=== PATIENT | female | born 1985 | race American Indian/Alaskan Native ===

== ENCOUNTER 2018-12-27 14:46 | Inpatient (IN) | payer OTHER ==
[2018-12-27] MEDS ORDERED: MINERAL OIL PO PRN ×2 (15:53→16:58)
[2018-12-27] MEDS ORDERED: BRETHINE IVP PRN ×2 (15:53→16:58)
[2018-12-27] MEDS ORDERED: XYLOCAINE 2% INFILTRATI ONE ×2 (15:53→16:58)
[2018-12-27] MEDS ORDERED: SUBLIMAZE IV PRN (15:53)
[2018-12-27] MEDS ORDERED: STADOL IV PRN (15:53)
[2018-12-27] MEDS ORDERED: BRETHINE SUB-Q PRN ×2 (15:53→16:58)
[2018-12-27] MEDS ORDERED: LACTATED RINGERS 1,000 ML IV SCH ×2 (16:00→17:00)
[2018-12-27] MEDS ORDERED: PITOCin/NS 20 UNIT/1000ML DRIP 20 UNITS/1,000 ML BAG IV SCH ×2 (16:00→17:00)
[2018-12-27] MEDS ORDERED: PITOCin/NS 30 UNIT/500ML 30 UNITS/500 ML BAG IV SCH ×2 (16:00→17:00)
[2018-12-27 16:48] LABS: Hematocrit 37.5 % (30.3-42.9); Hemoglobin 12.3 gm/dl (10.1-14.3); Mean Corpuscular HGB Conc 33 % (30-34); Mean Corpuscular Volume 86 fl (79-97); Platelet Count 326 K/mm3 (140-440); Red Blood Count 4.35 M/mm3 (3.65-5.03); Red Cell Distribution Width 14.9 % (13.2-15.2)
--- NOTE | 2018-12-27 16:57 | History and Physical Report ---
History of Present Illness Date of examination: 12/27/18 Date of admission: 12/27/18 14:46 Chief complaint: Labor History of present illness: Pt is a 33yo BF EDC 01/08/19; EGA 38 2/7 weeks presents to L&D complaining of RUC's q 3-5 mins and dilated 6.5/90/-2 She received care at [facility] since 12 weeks and co-managed by [facility] for AMA, IVF and shortened cervix. records are available and GBS is Negative. Past History Past Medical History: no pertinent history Past Surgical History: no surgical history Family/Genetic History: diabetes, heart disease, hypertension Social history: no significant social history, - Obstetrical History Expected Date of Delivery: 01/08/19 Actual Gestation: 38 Week(s) 2 Day(s) : 2 Medications and Allergies Allergies Allergy/AdvReac Type Severity Reaction Status Date / Time No Known Allergies Allergy Unverified 04/02/15 11:37 Active Meds: Active Medications Butorphanol Tartrate (Stadol) 2 mg IV Q2H PRN PRN Reason: Pain , Severe (7-10) Ephedrine Sulfate (Ephedrine Sulfate) 10 mg IV Q2M PRN PRN Reason: Hypotension Fentanyl (Sublimaze) 100 mcg IV Q2H PRN PRN Reason: Labor Pain Lactated Ringer's (Lactated Ringers) 1,000 mls @ 125 mls/hr IV DIRECT NICOLE Last Admin: 12/27/18 16:05 Dose: 125 mls/hr Documented by: Oxytocin/Sodium Chloride (Pitocin/Ns 20 Unit/1000ml Drip) 20 units in 1,000 mls @ 125 mls/hr IV DIRECT NICOLE Oxytocin/Sodium Chloride (Pitocin/Ns 30 Unit/500ml) 30 units in 500 mls @ 1 mls/hr IV TITR NICOLE; Protocol Mineral Oil (Mineral Oil) 30 ml PO QHS PRN PRN Reason: Constipation Terbutaline Sulfate (Brethine) 0.25 mg SUB-Q ONCE PRN PRN Reason: Hyperstimulation/Hypertonicity Terbutaline Sulfate (Brethine) 0.25 mg IVP ONCE PRN PRN Reason: Hyperstimulation/Hypertonicity Review of Systems All systems: negative - Vital Signs Vital signs: Vital Signs Pulse BP 106 H 133/74 12/27/18 14:59 12/27/18 14:59 Temp Pulse Resp BP Pulse Ox 98.2 F 106 H 16 133/74 12/27/18 16:18 12/27/18 14:59 12/27/18 16:18 12/27/18 14:59 - Physical Exam Breasts: Positive: deferred Cardiovascular: Regular rate Lungs: Positive: Clear to auscultation Abdomen: Positive: normal appearance Genitourinary (Female): Positive: normal external genitalia Vagina: Positive: normal moisture Uterus: Positive: enlarged Extremities: Positive: normal - Obstetrical FHR: category 1 Uterine Contraction Monitor Mode: External Cervical Dilatation: 6.5 (per nurse) Cervical Effacement Percentage: 90 (per nurse) station: -2 Uterine Contraction Pattern: Regular Uterine Tone Measurement Phase: Contraction Uterine Contraction Intensity: Moderate Results Result Diagrams: 12/27/18 15:30 All other labs normal. Assessment and Plan - Patient Problems (1) 38 weeks gestation of Onset Date: 12/27/18 Current Visit: Yes Status: Acute Plan to address problem: A: IUP @ 38 2/7 weeks in labor AMA IVF GBS Negative P: Admit to L&D for expectant vaginal delivery (2) AMA (advanced maternal age) primigravida 35+ Onset Date: 12/27/18 Current Visit: Yes Status: Acute Qualifiers: Trimester: third trimester Qualified Code(s): O09.513 - Supervision of elderly primigravida, third trimester (3) resulting from in vitro fertilization Onset Date: 12/27/18 Current Visit: Yes Status: Acute Qualifiers: Trimester: first trimester Qualified Code(s): O09.811 - Supervision of resulting from assisted reproductive technology, first trimester
[2018-12-27] MEDS ORDERED: NARCAN 2 MG/2 ML IV PRN (17:08)
--- NOTE | 2018-12-27 17:11 | Anesthesia Day of Surgery ---
Anesthesia Day of Surgery - Day of Surgery Patient Examined: Yes Patient H&P Reviewed: Yes Patient is NPO: Yes Beta Blockers: No Cardiac Clearance: No Pulmonary Clearance: No Frank's Test: N/A
--- NOTE | 2018-12-27 17:12 | Anesthesia Consultation ---
Anesthesia Consult and Med Hx Date of service: 12/27/18 - Airway Anesthetic Teeth Evaluation: Good ROM Head & Neck: Adequate Mental/Hyoid Distance: Adequate Mallampati Class: Class III Intubation Access Assessment: Probably Good - Pulmonary Exam CTA: Yes - Cardiac Exam Cardiac Exam: RRR - Pre-Operative Health Status ASA Pre-Surgery Classification: ASA3 Proposed Anesthetic Plan: Epidural - Pulmonary Hx Smoking: No Hx Asthma: No Hx Respiratory Symptoms: No SOB: No COPD: No Home Oxygen Therapy: No Hx Pneumonia: No Hx Sleep Apnea: No - Cardiovascular System Hx Hypertension: No Hx Coronary Artery Disease: No Hx Heart Attack/AMI: No Hx Angina: No Hx Percutaneous Transluminal Coronary Angioplasty (PTCA): No Hx Cardia Arrhythmia: No Hx Pacemaker: No Hx Internal Defibrillator: No Hx Valvular Heart Disease: No Hx Heart Murmur: No Hx Peripheral Vascular Disease: No - Central Nervous System Hx Neuromuscular Disorder: No Hx Seizures: No CVA: No Hx Back Pain: Yes Hx Psychiatric Problems: No - Gastrointestinal Hx Ulcer: No Hx Gastroesophageal Reflux Disease: Yes - Endocrine Hx Renal Disease: No Hx End Stage Renal Disease: No Hx Cirrhosis: No Hx Liver Disease: No Hx Insulin Dependent Diabetes: No Hx Non-Insulin Dependent Diabetes: No Hx Thyroid Disease: No Hx Hypothyroidism: No Hx Hyperthyroidism: No - Hematic Hx Anemia: No Hx Sickle Cell Disease: No - Other Systems Hx Alcohol Use: No Hx Substance Use: No Hx Cancer: No Hx Obesity: Yes
[2018-12-27] MEDS ORDERED: fentaNYL-BUPIV 2 MCG/ML-0.125% 200 MCG/100 ML BAG EPIDURAL SCH (18:00)
[2018-12-27] MEDS ORDERED: NEO SYNEPHRINE ONE (18:08)
[2018-12-27] MEDS ORDERED: XYLOCAINE MPF 2% ONE ×2 (18:08→18:27)
[2018-12-27] MEDS ORDERED: SUBLIMAZE ONE ×2 (18:24)
[2018-12-27] MEDS ORDERED: DIPRIVAN 10 MG/ML IV ONE (18:28)
[2018-12-27] MEDS ORDERED: ZEMURON IV ONE (18:32)
[2018-12-27] MEDS ORDERED: ZOFRAN ONE (18:40)
[2018-12-27] MEDS ORDERED: DECADRON ONE (18:40)
[2018-12-27] MEDS ORDERED: PEPCID PO ONE (18:51)
[2018-12-27] MEDS ORDERED: VERSED ONE (18:59)
[2018-12-27] MEDS ORDERED: LACTATED RINGERS 1,000 ML ONE (19:04)
[2018-12-27] MEDS ORDERED: ROBINUL ONE (19:08)
[2018-12-27] MEDS ORDERED: BLOXIVERZ ONE (19:08)
[2018-12-27] MEDS ORDERED: DILAUDID ONE (19:24)
[2018-12-28] MEDS ORDERED: METHERGINE IM ONE ×2 (00:33→00:36)
[2018-12-28] MEDS ORDERED: XYLOCAINE 2% INFILTRATI ONE (00:33)
--- NOTE | 2018-12-28 00:49 | Procedure Note ---
OB Delivery Note - Delivery Date of Delivery: 12/28/18 Surgeon: NELA NAPIER Estimated blood loss: 300cc - Vaginal Delivery presentation: vertex Delivery position: OP Intrapartum events: none Delivery induction: none Delivery augmentation: rupture of membranes, pitocin Delivery monitor: external FHT, external uterine Route of delivery: vacuum extraction (3 pulls, 1 pop-off) Indicators for instrumentation: maternal exhaustion Delivery placenta: spontaneous Delivery cord: nuchal cord (x1) Episiotomy: midline Delivery laceration: 2nd degree Delivery repair: vicryl Anesthesia: epidural Delivery comments: Infant delivered OP with the aid of a vacuum, 3 pulls, 1 pop-off, nuchal cord reduced, and infant placed on Mom's chest for [id number] bonding and delayed cord clamping, cut by Dad - A at 1 minute: 8 Infant Gender: Male (3132gms)
[2018-12-28] MEDS ORDERED: DULCOLAX PR PRN (00:50)
[2018-12-28] MEDS ORDERED: PHENERGAN PR PRN (00:50)
[2018-12-28] MEDS ORDERED: NORCO 5/325 PO PRN (00:50)
[2018-12-28] MEDS ORDERED: LANSINOH TP PRN (00:50)
[2018-12-28] MEDS ORDERED: PHENERGAN PO PRN (00:50)
[2018-12-28] MEDS ORDERED: BENADRYL PO PRN (00:50)
[2018-12-28] MEDS ORDERED: ZOFRAN IV PRN (00:50)
[2018-12-28] MEDS ORDERED: MILK OF MAGNESIA PO PRN (00:50)
[2018-12-28] MEDS ORDERED: TYLENOL PO PRN (00:50)
[2018-12-28] MEDS ORDERED: TUCKS PAD TP PRN (00:50)
[2018-12-28] MEDS ORDERED: PITOCin/NS 20 UNIT/1000ML DRIP 20 UNITS/1,000 ML BAG IV SCH (01:00)
[2018-12-28] MEDS ORDERED: SODIUM CHLORIDE FLUSH SYRINGE 10 ML IV PRN (01:00)
[2018-12-28] MEDS: IBUPROFEN PO SCH ×3 (03:00→23:24)
[2018-12-28] MEDS: PRENATAL VITAMIN PO SCH (10:43)
[2018-12-28] MEDS: COLACE PO SCH ×2 (10:43→23:25)
[2018-12-28] MEDS: FEOSOL PO SCH ×2 (10:43→23:25)
[2018-12-28 12:55] LABS: Hematocrit 31.6 % (30.3-42.9); Hemoglobin 10.4 gm/dl (10.1-14.3)
[2018-12-29] MEDS ORDERED: M-M-R II VACCINE SUB-Q ONE (00:50)
[2018-12-29] MEDS: IBUPROFEN PO SCH ×3 (05:59→19:01)
[2018-12-29] MEDS ORDERED: BOOSTRIX IM ONE (06:00)
--- NOTE | 2018-12-29 09:10 | Progress Note ---
Assessment and Plan - Patient Problems (1) 38 weeks gestation of Onset Date: 12/27/18 Current Visit: Yes Status: Resolved (2) AMA (advanced maternal age) primigravida 35+ Onset Date: 12/27/18 Current Visit: Yes Status: Chronic Qualifiers: Trimester: third trimester Qualified Code(s): O09.513 - Supervision of elderly primigravida, third trimester (3) resulting from in vitro fertilization Onset Date: 12/27/18 Current Visit: Yes Status: Resolved Qualifiers: Trimester: first trimester Qualified Code(s): O09.811 - Supervision of resulting from assisted reproductive technology, first trimester (4) (normal spontaneous vaginal delivery) Onset Date: 12/29/18 Current Visit: Yes Status: Resolved Plan to address problem: A: S/P - PPD #1 Doing well Asymptomatic anemia - stable P: May go home tomorrow. Subjective - Subjective Date of service: 12/29/18 Principal diagnosis: s/p - PPD #1 Interval history: Pt is feeling well without complaints. Bleeding improved. Patient reports: appetite normal, voiding normally, pain well controlled, flatus, ambulating normally, no dizzy ambulation, no nauseated [place]: doing well, nursing well, bottle feeding Objective - Vital Signs Latest vital signs: Vital Signs Temp Pulse Resp BP BP Pulse Ox 12/29/18 08:10 98.3 F 91 H 18 97/50 12/29/18 00:30 98.7 F 77 18 119/81 12/28/18 21:36 98.0 F 103 H 18 119/47 98 12/28/18 15:51 98.4 F 105 H 20 126/66 98 12/28/18 12:17 98.3 F 94 H 20 120/68 98 Intake and Output 12/28/18 12/29/18 12/29/18 22:59 06:59 14:59 Intake Total 540 300 Output Total 900 Balance 540 -600 Intake: Oral 240 300 Intake, Free Water 300 Output: Urine 900 Void 900 Other: Total, Intake Amount 240 300 Total, Output Amount 900 # Voids Void 1 - Exam Breasts: Present: deferred Abdomen: Present: normal appearance, soft Uterus: Present: normal, firm, fundal height below umbilicus Extremities: Present: normal - Labs Labs: Laboratory Tests 12/27/18 12/27/18 12/27/18 15:30 15:30 15:30 WBC 7.9 RBC 4.35 Hgb 12.3 Hct 37.5 MCV 86 MCH 28 MCHC 33 RDW 14.9 Plt Count 326 RPR Nonreactive Blood Type O POSITIVE Antibody Screen Negative 12/28/18 12:43 WBC RBC Hgb 10.4 Hct 31.6 MCV MCH MCHC RDW Plt Count RPR Blood Type Antibody Screen
--- NOTE | 2018-12-29 12:52 | Discharge Summary ---
Providers - Providers Date of Admission: 12/27/18 14:46 Date of discharge: 12/30/18 Attending physician: NELA NAPIER Primary care physician: NELA NAPIER Hospitalization Reason for admission: active labor, IUP at term Delivery: , vacuum extraction Episiotomy: none Laceration: 2nd degree Incision: normal Other procedures: none complications: none Discharge diagnosis: IUP at term delivered [place] baby: male Hospital course: Unremarkable. Condition at discharge: Good Disposition: DC-01 TO HOME OR SELFCARE - Discharge Diagnoses (1) 38 weeks gestation of Status: Resolved (2) AMA (advanced maternal age) primigravida 35+ Status: Chronic Qualifiers: Trimester: third trimester Qualified Code(s): O09.513 - Supervision of elderly primigravida, third trimester (3) resulting from in vitro fertilization Status: Resolved Qualifiers: Trimester: first trimester Qualified Code(s): O09.811 - Supervision of resulting from assisted reproductive technology, first trimester (4) (normal spontaneous vaginal delivery) Status: Resolved Plan - Discharge Medications Prescriptions: Ferrous Sulfate [Feosol 325 MG tab] 325 mg PO BID #60 tablet Ibuprofen [Motrin 600 MG tab] 600 mg PO Q6HR #30 tablet Vit-Fe Fumar-FA [ Vitamin] 1 each PO QDAY #30 tablet - Provider Discharge Summary Activity: routine, no sex for 6 weeks, no heavy lifting 4 weeks, no strenuous exercise Diet: routine Instructions: routine Additional instructions: [] Smoking cessation referral if applicable(refer to patient education folder for contact #) [] Refer to [facility]'s [facility] Booklet Call your doctor immediately for: * Fever > 100.5 * Heavy vaginal bleeding ( >1 pad per hour) * Severe persistent headache * Shortness of breath * Reddened, hot, painful area to leg or breast * Drainage or odor from incision. * Keep incision clean and dry at all times and follow doctor's instructions regarding bathing/showering - Follow up plan Follow up: NELA NAPIER MD [Primary Care Provider] - 6 Weeks MAXI CHINCHILLA CNM [Advanced Practice Nurse] - 6 Weeks
[2018-12-29] MEDS: PRENATAL VITAMIN PO SCH (14:00)
[2018-12-29] MEDS: FEOSOL PO SCH ×2 (14:00→22:25)
[2018-12-29] MEDS: COLACE PO SCH ×2 (14:00→22:25)
[2018-12-30] MEDS: IBUPROFEN PO SCH ×2 (00:25→06:23)
[2018-12-30] MEDS: PRENATAL VITAMIN PO SCH (10:00)
[2018-12-30] MEDS: COLACE PO SCH (10:00)
[2018-12-30] MEDS: FEOSOL PO SCH (10:00)
[2018-12-30 13:41] VITALS: BP 116/70
== END 2018-12-30 12:58 | disposition home or self-care (01) | DRG 807 ==
LOC: LD 14:46 → OB 12-28 03:20
PROVIDERS: ADMIT Obstetrics & Gynecology; ATTEND Obstetrics & Gynecology
PROC: 10D07Z6 Extraction of Products of Conception, Vacuum, Via Natural or Artificial Opening (ICD-10-PCS; principal; 2018-12-28)
PROC: 0KQM0ZZ Repair Perineum Muscle, Open Approach (ICD-10-PCS; 2018-12-28)
PROC: 0W8NXZZ Division of Female Perineum, External Approach (ICD-10-PCS; 2018-12-28)
PROC: 3E0R3BZ Introduction of Anesthetic Agent into Spinal Canal, Percutaneous Approach (ICD-10-PCS; 2018-12-28)
PROC: 00HU33Z Insertion of Infusion Device into Spinal Canal, Percutaneous Approach (ICD-10-PCS; 2018-12-28)
DX: O75.81 Maternal exhaustion complicating labor and delivery (principal); Z37.0 Single live birth; Z3A.38 38 weeks gestation of pregnancy; Z83.3 Family history of diabetes mellitus; Z82.49 Family history of ischemic heart disease and other diseases of the circulatory system; K21.9 Gastro-esophageal reflux disease without esophagitis; E66.9 Obesity, unspecified; O70.1 Second degree perineal laceration during delivery; O99.214 Obesity complicating childbirth; O99.62 Diseases of the digestive system complicating childbirth
CPT/HCPCS: 36415; 85014; 85018; 85027; 86592; 86850; 86900; 86901; G0378; A6250; J1100; J1170; J2210; J2250; J2370; J2405; J2590; J2704; J2710; J3010; J7120